=== PATIENT | female | born 1960 | race Caucasian/White ===

== ENCOUNTER 2017-12-20 16:51 | Emergency (ER) | payer SELFPAY, OTHER | END 2017-12-20 18:42 | disposition home or self-care (01) | LOC: PHEFT 16:51 | DX: J11.1 Influenza due to unidentified influenza virus with other respiratory manifestations (principal); I10 Essential (primary) hypertension; E78.00 Pure hypercholesterolemia, unspecified; F32.9 Major depressive disorder, single episode, unspecified; K21.9 Gastro-esophageal reflux disease without esophagitis; Z20.828 Contact with and (suspected) exposure to other viral communicable diseases; Z79.899 Other long term (current) drug therapy | CPT/HCPCS: 99284 ==